=== PATIENT | female | born 1995 | race Two or more races ===

== ENCOUNTER 2017-01-21 21:53 | Emergency (ER) | payer OTHER ==
[2017-01-21 22:50] LABS: BASOPHIL % 0.9 % (0-2); PLATELET COUNT 222 x10^3mcL (130-400); RED CELL DISTRIBUTION WIDTH 14.1 % (11.5-14.5)
[2017-01-21 23:01] LABS: CALCIUM 8.8 mg/dL (8.5-10.1); CHLORIDE SERUM 105 mmol/L (98-107); CREATININE SERUM 0.6 mg/dL (0.6-1.0); GFR1 > 60 mL/min; GLUCOSE SERUM 96 mg/dL (74-106); POTASSIUM SERUM 3.7 mmol/L (3.5-5.1); SODIUM SERUM 141 mmol/L (136-145)
[2017-01-21 23:05] LABS: ALBUMIN 3.7 g/dL (3.4-5.0); ALKALINE PHOSPHATASE 73 U/L (46-116); ALT/SGPT 20 U/L (14-59); AST/SGOT 12 U/L (15-37); BILIRUBIN TOTAL 0.23 mg/dL (0.20-1.00); TOTAL PROTEIN, SERUM 7.4 g/dL (6.4-8.2)
[2017-01-22 02:46] VITALS: BP 115/63
== END 2017-01-22 02:46 | disposition home or self-care (01) ==
LOC: ED 21:53
PROVIDERS: Emergency Medicine
DX: R51 Headache (principal); M79.602 Pain in left arm
CPT/HCPCS: 36415; J1885; Q0092

== ENCOUNTER 2017-11-05 15:04 | Emergency (ER) | payer OTHER ==
[~2017-11-05] VITALS: Ht 154.9 cm; Wt 85.3 kg
[2017-11-05 15:07] VITALS: BP 130/75; Ht 154.9 cm; Wt 85.3 kg
[2017-11-05 15:48] LABS: CALCIUM 8.4 mg/dL (8.5-10.1); CARBON DIOXIDE 29.3 mmol/L (21-32); CHLORIDE SERUM 104 mmol/L (98-107); CREATININE SERUM 0.7 mg/dL (0.6-1.0); GFR1 > 60 mL/min; GLUCOSE SERUM 100 mg/dL (74-106); POTASSIUM SERUM 3.8 mmol/L (3.5-5.1); SODIUM SERUM 137 mmol/L (136-145)
[2017-11-05 15:52] LABS: ALBUMIN 3.7 g/dL (3.4-5.0); ALKALINE PHOSPHATASE 68 U/L (46-116); ALT/SGPT 26 U/L (14-59); AST/SGOT 15 U/L (15-37); BILIRUBIN TOTAL 0.3 mg/dL (0.20-1.00); LIPASE 130 IU/L (73-393); TOTAL PROTEIN, SERUM 7.6 g/dL (6.4-8.2)
[2017-11-05 15:53] LABS: BASOPHIL % 0.2 % (0-2); PLATELET COUNT 239 x10^3mcL (130-400); RED CELL DISTRIBUTION WIDTH 14.3 % (11.5-14.5)
== END 2017-11-05 16:38 | disposition home or self-care (01) ==
LOC: ED 15:04
PROVIDERS: Emergency Medicine
DX: R10.11 Right upper quadrant pain (principal); J45.909 Unspecified asthma, uncomplicated; R11.10 Vomiting, unspecified; R19.7 Diarrhea, unspecified
CPT/HCPCS: J1885; J2405; J7030

== ENCOUNTER 2018-03-12 10:29 | Emergency (ER) | payer OTHER ==
[~2018-03-12] VITALS: Ht 154.9 cm; Wt 82.7 kg
[2018-03-12 10:56] VITALS: Ht 154.9 cm; Wt 82.7 kg
[2018-03-12 13:31] VITALS: BP 107/77
== END 2018-03-12 12:41 | disposition left against medical advice (07) ==
LOC: ED 10:29
DX: Z53.21 Procedure and treatment not carried out due to patient leaving prior to being seen by health care provider (principal)

== ENCOUNTER 2018-09-05 10:35 | Emergency (ER) | payer OTHER ==
[~2018-09-05] VITALS: Ht 154.9 cm; Wt 84.5 kg
[2018-09-05 11:00] VITALS: BP 120/67; Ht 154.9 cm; Wt 84.5 kg
== END 2018-09-05 13:45 | disposition home or self-care (01) ==
LOC: ED 10:35
DX: H66.91 Otitis media, unspecified, right ear (principal); J45.909 Unspecified asthma, uncomplicated

== ENCOUNTER 2018-12-08 21:24 | Emergency (ER) | payer OTHER ==
[~2018-12-08] VITALS: Ht 154.9 cm; Wt 86.6 kg
[2018-12-08 21:56] VITALS: Ht 154.9 cm; Wt 86.6 kg
[2018-12-09 01:05] VITALS: BP 98/54
== END 2018-12-09 01:05 | disposition home or self-care (01) ==
LOC: ED 21:24
DX: H66.92 Otitis media, unspecified, left ear (principal)

== ENCOUNTER 2018-12-11 14:02 | Emergency (ER) | payer OTHER | END 2018-12-11 16:07 | disposition home or self-care (01) | LOC: ED 14:02 ==

== ENCOUNTER 2020-01-17 07:12 | Emergency (ER) | payer OTHER ==
[~2020-01-17] VITALS: Ht 154.9 cm; Wt 86.2 kg
[2020-01-17 07:25] VITALS: Ht 154.9 cm; Wt 86.2 kg
[2020-01-17 09:45] VITALS: BP 97/53
== END 2020-01-17 09:45 | disposition home or self-care (01) ==
LOC: ED 07:12
DX: N75.1 Abscess of Bartholin's gland (principal); Z87.19 Personal history of other diseases of the digestive system
CPT/HCPCS: J2001; J2270; J2405

== ENCOUNTER 2020-01-19 13:00 | Emergency (ER) | payer OTHER ==
[~2020-01-19] VITALS: Ht 154.9 cm; Wt 90.7 kg
[2020-01-19 13:08] VITALS: BP 111/67; Ht 154.9 cm; Wt 90.7 kg
== END 2020-01-19 14:02 | disposition home or self-care (01) ==
LOC: ED 13:00
DX: N75.0 Cyst of Bartholin's gland (principal); Z90.49 Acquired absence of other specified parts of digestive tract